=== PATIENT | female | born 1965 | race Caucasian/White ===

== ENCOUNTER 2016-07-24 22:23 | Emergency (ER) | payer OTHER ==
[2016-07-24] MEDS ORDERED: IPRATROPIUM/ALBUTEROL 3 ML NEB INH STA (23:07)
[2016-07-24] MEDS ORDERED: IPRATROPIUM/ALBUTEROL 3 ML NEB INH ONE (23:07)
[2016-07-24] MEDS ORDERED: DEXAMETHASONE 10 MG/ML VIAL PO STA (23:08)
[2016-07-24] MEDS ORDERED: DEXAMETHASONE 10 MG/ML VIAL ONE (23:21)
[2016-07-24] MEDS ORDERED: CHERRY SYRUP 10 ML UDC PO ONE (23:21)
[2016-07-24] MEDS ORDERED: PHENobarb/HYOSCY/ATROPINE/SCOP 5 ML SYRINGE PO STA (23:45)
[2016-07-24] MEDS ORDERED: MAG HYDROX/AL HYDROX/SIMETH 30 ML UDC PO STA (23:45)
[2016-07-24] MEDS ORDERED: LIDOCAINE VISCOUS 2% 15 ML UDC MM STA (23:45)
[2016-07-24] MEDS ORDERED: LIDOCAINE VISCOUS 2% 15 ML UDC MM ONE (23:56)
[2016-07-24] MEDS ORDERED: MAG HYDROX/AL HYDROX/SIMETH 30 ML UDC ONE (23:57)
[2016-07-24] MEDS ORDERED: PHENobarb/HYOSCY/ATROPINE/SCOP 5 ML SYRINGE PO ONE (23:57)
[2016-07-25] MEDS ORDERED: LEVALBUTEROL 1.25 MG INH STA (00:28)
[2016-07-25] MEDS ORDERED: LEVALBUTEROL 1.25 MG INH ONE (00:37)
== END 2016-07-25 01:30 | disposition home or self-care (01) ==
DX: J45.909 Unspecified asthma, uncomplicated (principal); I10 Essential (primary) hypertension; E78.00 Pure hypercholesterolemia, unspecified; K21.9 Gastro-esophageal reflux disease without esophagitis; F17.200 Nicotine dependence, unspecified, uncomplicated
CPT/HCPCS: 71020; 93005; 93010; 94640; 99284; A9270; J7620

== ENCOUNTER 2018-01-10 08:00 | Outpatient (CLI) | payer OTHER ==
[2018-01-10 19:45] LABS: BASOPHILS % (AUTO) 0.8 %; EOSINOPHILS % (AUTO) 1.7 %; HGB - HEMOGLOBIN 14.3 g/dL (12.0-16.0); LYMPHOCYTES % (AUTO) 23.4 %; MEAN CORPUSCULAR HEMOGLOBIN 28.9 pg (27.0-31.0); MEAN CORPUSCULAR HGB CONC 33.2 g/dL (32.0-36.0); MEAN CORPUSCULAR VOLUME 87.1 fL (81.0-99.0); MEAN PLATELET VOLUME 9.7 fL (7.9-10.8); MONOCYTES % (AUTO) 4.3 %; NEUTROPHILS % (AUTO) 69.8 %; PLT - PLATELET COUNT 368 10^3/uL (130-450); RED BLOOD COUNT 4.96 10^6/uL (4.20-5.40); RED CELL DISTRIBUTION WIDTH 13.9 % (12.0-15.0); WHITE BLOOD COUNT 9.5 x10^3/uL (4.8-10.8)
[2018-01-10 19:52] LABS: ABNORMAL LYMPHS % (MANUAL) 0 %
[2018-01-10 19:56] LABS: ALBUMIN 4.4 g/dL (3.2-5.5); ALBUMIN/GLOBULIN RATIO 1.2 (1.0-2.2); ALKALINE PHOSPHATASE 72 IU/L (42-121); ALT ALANINE AMINOTRANSFERASE 55 IU/L (10-60); AST ASPARTATE AMINOTRANSFERASE 61 IU/L (10-42); BILIRUBIN,TOTAL 1.1 mg/dL (0.2-1.0); BUN - BLOOD UREA NITROGEN 15 mg/dL (6-20); CARBON DIOXIDE - CO2 26 mmol/L (21-32); CHLORIDE 94 mmol/L (101-111); CHOL/HDL RATIO 6.5 (<4.4); CHOLESTEROL 194 mg/dL; CREATININE 0.8 mg/dL (0.4-1.0); GFR - MDRD 75 (>89); GLUCOSE 312 mg/dL (70-100); HDL CHOLESTEROL 30 mg/dL; LDL CHOLESTEROL,CALCULATED 109 mg/dL; LDL/HDL RATIO 3.6 (<4.4); SODIUM 131 mmol/L (135-145); TOTAL PROTEIN 8.2 g/dL (6.7-8.2); VLDL CHOLESTEROL 55 mg/dL
[2018-01-10 20:02] LABS: THYROID STIMULATING HORMONE 2.36 uIU/mL (0.34-5.60)
[2018-01-10 20:05] LABS: CRP - C-REACTIVE PROTEIN < 1.0 mg/dL (0-1.0)
[2018-01-10 20:31] LABS: BAND NEUTROPHILS % (MANUAL) 4 %; BASOPHILS # (MANUAL) 0.2 10^3/uL (0-0.1); BASOPHILS % (MANUAL) 2 %; EOSINOPHILS # (MANUAL) 0.1 10^3/uL (0-0.7); LYMPHOCYTES # (MANUAL) 2.1 10^3/uL (1.5-3.5); LYMPHOCYTES % (MANUAL) 20 %; MONOCYTES # (MANUAL) 0.5 10^3/uL (0.0-1.0); NEUTROPHILS # (MANUAL) 6.7 10^3/uL (1.5-6.6); NEUTROPHILS % (MANUAL) 66 %
[2018-01-10 20:32] LABS: DIFFERENTIAL COMMENT MANUAL DIFFERENTIAL; PLATELET ESTIMATE, MANUAL NORMAL (130-450,000) (NORMAL); PLATELET MORPHOLOGY NORMAL APPEARANCE (NORMAL); RBC MORPHOLOGY (MULTIPLE) NORMAL APPEARANCE (NORMAL)
[2018-01-10 20:35] LABS: HB2 TOTAL 15.6 g/dL; HEMOGLOBIN A1C 2.02 g/dL
== END 2018-01-10 08:01 | disposition home or self-care (01) ==
LOC: LAB.WCP 08:00
PROVIDERS: ATTEND Family Medicine
DX: G62.9 Polyneuropathy, unspecified (principal); I10 Essential (primary) hypertension
CPT/HCPCS: 36415; 80053; 80061; 82607; 83036; 83721; 84443; 85025; 86140

== ENCOUNTER 2018-07-02 08:00 | Outpatient (CLI) | payer OTHER ==
[2018-07-02 14:18] LABS: BASOPHILS # (AUTO) 0.1 10^3/uL (0.0-0.1); BASOPHILS % (AUTO) 0.9 %; EOSINOPHILS # (AUTO) 0.2 10^3/uL (0.0-0.7); EOSINOPHILS % (AUTO) 2.2 %; HGB - HEMOGLOBIN 13.4 g/dL (12.0-16.0); LYMPHOCYTES # (AUTO) 2.7 10^3/uL (1.5-3.5); LYMPHOCYTES % (AUTO) 26.5 %; MEAN CORPUSCULAR HEMOGLOBIN 28.7 pg (27.0-31.0); MEAN CORPUSCULAR HGB CONC 33.3 g/dL (32.0-36.0); MEAN CORPUSCULAR VOLUME 86.3 fL (81.0-99.0); MEAN PLATELET VOLUME 8.6 fL (7.9-10.8); MONOCYTES # (AUTO) 0.4 10^3/uL (0.0-1.0); MONOCYTES % (AUTO) 4.2 %; NEUTROPHILS # (AUTO) 6.8 10^3/uL (1.5-6.6); NEUTROPHILS % (AUTO) 66.2 %; PLT - PLATELET COUNT 359 10^3/uL (130-450); RED BLOOD COUNT 4.65 10^6/uL (4.20-5.40); RED CELL DISTRIBUTION WIDTH 14.4 % (12.0-15.0); WHITE BLOOD COUNT 10.3 x10^3/uL (4.8-10.8)
[2018-07-02 14:20] LABS: ALBUMIN 4.3 g/dL (3.2-5.5); ALBUMIN/GLOBULIN RATIO 1.2 (1.0-2.2); ALKALINE PHOSPHATASE 58 IU/L (42-121); ALT ALANINE AMINOTRANSFERASE 21 IU/L (10-60); AST ASPARTATE AMINOTRANSFERASE 18 IU/L (10-42); BILIRUBIN,TOTAL 0.7 mg/dL (0.2-1.0); BUN - BLOOD UREA NITROGEN 16 mg/dL (6-20); CALCIUM 9.5 mg/dL (8.5-10.3); CARBON DIOXIDE - CO2 26 mmol/L (21-32); CHLORIDE 98 mmol/L (101-111); CHOL/HDL RATIO 4.6 (<4.4); CHOLESTEROL 196 mg/dL; CREATININE 0.9 mg/dL (0.4-1.0); GFR - MDRD 65 (>89); GLUCOSE 161 mg/dL (70-100); HDL CHOLESTEROL 43 mg/dL; LDL CHOLESTEROL,CALCULATED 109 mg/dL; LDL/HDL RATIO 2.5 (<4.4); SODIUM 135 mmol/L (135-145); VLDL CHOLESTEROL 44 mg/dL
[2018-07-02 14:40] LABS: HB2 TOTAL 14.8 g/dL; HEMOGLOBIN A1C 0.95 g/dL
== END 2018-07-02 23:59 | disposition home or self-care (01) ==
LOC: LAB.WCP 08:00
PROVIDERS: ATTEND Family Medicine
DX: E11.65 Type 2 diabetes mellitus with hyperglycemia (principal)
CPT/HCPCS: 36415; 80053; 80061; 83036; 83721; 85025

== ENCOUNTER 2019-09-06 08:00 | Outpatient (CLI) | payer OTHER ==
[2019-09-06 13:27] LABS: BASOPHILS # (AUTO) 0.1 10^3/uL (0.0-0.1); BASOPHILS % (AUTO) 0.7 %; EOSINOPHILS # (AUTO) 0.2 10^3/uL (0.0-0.7); EOSINOPHILS % (AUTO) 2.2 %; HGB - HEMOGLOBIN 11.2 g/dL (12.0-16.0); LYMPHOCYTES % (AUTO) 27.6 %; MEAN CORPUSCULAR HEMOGLOBIN 25.9 pg (27.0-31.0); MEAN CORPUSCULAR HGB CONC 30.7 g/dL (32.0-36.0); MEAN CORPUSCULAR VOLUME 84.3 fL (81.0-99.0); MEAN PLATELET VOLUME 10.9 fL (7.9-10.8); MONOCYTES # (AUTO) 0.4 10^3/uL (0.0-1.0); MONOCYTES % (AUTO) 4.7 %; NEUTROPHILS # (AUTO) 4.7 10^3/uL (1.5-6.6); NEUTROPHILS % (AUTO) 64.3 %; PLT - PLATELET COUNT 341 10^3/uL (130-450); RED BLOOD COUNT 4.33 10^6/uL (4.20-5.40); RED CELL DISTRIBUTION WIDTH 14.4 % (12.0-15.0); WHITE BLOOD COUNT 7.4 x10^3/uL (4.8-10.8)
[2019-09-06 13:47] LABS: MICROALBUM/CREATININE RATIO,UR 42.2 ug/mg (<30.0); MICROALBUMIN,URINE 12.5 mg/dL (0-300.0)
[2019-09-06 14:15] LABS: ALBUMIN 3.9 g/dL (3.2-5.5); ALBUMIN/GLOBULIN RATIO 1.1 (1.0-2.2); ALKALINE PHOSPHATASE 52 IU/L (42-121); ALT ALANINE AMINOTRANSFERASE 32 IU/L (10-60); AST ASPARTATE AMINOTRANSFERASE 28 IU/L (10-42); BILIRUBIN,TOTAL 0.6 mg/dL (0.2-1.0); BUN - BLOOD UREA NITROGEN 18 mg/dL (6-20); CALCIUM 9.1 mg/dL (8.5-10.3); CARBON DIOXIDE - CO2 26 mmol/L (21-32); CHLORIDE 104 mmol/L (101-111); CHOLESTEROL 199 mg/dL; CREATININE 0.9 mg/dL (0.4-1.0); GLUCOSE 173 mg/dL (70-100); HDL CHOLESTEROL 33 mg/dL; LDL CHOLESTEROL,CALCULATED 120 mg/dL; LDL/HDL RATIO 3.6 (<4.4); SODIUM 140 mmol/L (135-145); TOTAL PROTEIN 7.4 g/dL (6.7-8.2); VLDL CHOLESTEROL 46 mg/dL
[2019-09-06 14:16] LABS: HEMOGLOBIN A1C 0.78 g/dL; HEMOGLOBIN A1C % 8.1 % (4.6-6.2)
== END 2019-09-06 23:59 | disposition home or self-care (01) ==
LOC: LAB.WCP 08:00
PROVIDERS: ATTEND Family Medicine
DX: E11.65 Type 2 diabetes mellitus with hyperglycemia (principal)
CPT/HCPCS: 36415; 80053; 80061; 82043; 82570; 83036; 83721; 84443; 85025

== ENCOUNTER 2020-12-28 11:26 | Outpatient (CLI) | payer OTHER ==
[2020-12-28 17:49] LABS: BASOPHILS # (AUTO) 0.1 10^3/uL (0.0-0.1); BASOPHILS % (AUTO) 0.9 %; EOSINOPHILS # (AUTO) 0.2 10^3/uL (0.0-0.7); EOSINOPHILS % (AUTO) 2.5 %; HCT - HEMATOCRIT 44.4 % (37.0-47.0); LYMPHOCYTES # (AUTO) 2.8 10^3/uL (1.5-3.5); LYMPHOCYTES % (AUTO) 30.9 %; MEAN CORPUSCULAR HEMOGLOBIN 29.2 pg (27.0-31.0); MEAN CORPUSCULAR HGB CONC 31.5 g/dL (32.0-36.0); MEAN CORPUSCULAR VOLUME 92.5 fL (81.0-99.0); MEAN PLATELET VOLUME 10.1 fL (7.9-10.8); MONOCYTES # (AUTO) 0.4 10^3/uL (0.0-1.0); MONOCYTES % (AUTO) 4.1 %; NEUTROPHILS # (AUTO) 5.6 10^3/uL (1.5-6.6); PLT - PLATELET COUNT 365 10^3/uL (130-450); RED CELL DISTRIBUTION WIDTH 13.3 % (12.0-15.0); WHITE BLOOD COUNT 9.1 x10^3/uL (4.8-10.8)
[2020-12-28 18:16] LABS: % IRON SATURATION 10 % (20-50); ALBUMIN 4.5 g/dL (3.2-5.5); ALBUMIN/GLOBULIN RATIO 1.2 (1.0-2.2); ALKALINE PHOSPHATASE 58 IU/L (42-121); ALT ALANINE AMINOTRANSFERASE 29 IU/L (10-60); AST ASPARTATE AMINOTRANSFERASE 18 IU/L (10-42); BILIRUBIN,TOTAL 0.4 mg/dL (0.2-1.0); BUN - BLOOD UREA NITROGEN 12 mg/dL (6-20); CALCIUM 9.4 mg/dL (8.5-10.3); CARBON DIOXIDE - CO2 30 mmol/L (21-32); CHLORIDE 97 mmol/L (101-111); CHOL/HDL RATIO 5.7 (<4.4); CHOLESTEROL 205 mg/dL; CREATININE 0.8 mg/dL (0.4-1.0); GFR - MDRD 74 (>89); GLUCOSE 144 mg/dL (70-100); HDL CHOLESTEROL 36 mg/dL; IRON 48 ug/dL (28-170); LDL CHOLESTEROL,CALCULATED 107 mg/dL; POTASSIUM 4.2 mmol/L (3.5-5.0); SODIUM 134 mmol/L (135-145); TOTAL IRON BINDING CAPACITY 470 ug/dL (250-450); TOTAL PROTEIN 8.2 g/dL (6.7-8.2); TRANSFERRIN 336 mg/dL (192-382); TRIGLYCERIDES 308 mg/dL; VLDL CHOLESTEROL 62 mg/dL
[2020-12-28 18:19] LABS: THYROID STIMULATING HORMONE 2.95 uIU/mL (0.34-5.60)
[2020-12-28 18:20] LABS: CREATININE,URINE 72.7 mg/dL; MICROALBUM/CREATININE RATIO,UR 6.9 ug/mg (<30.0); MICROALBUMIN,URINE 0.5 mg/dL (0-300.0)
[2020-12-28 20:46] LABS: ESTIMATED AVERAGE GLUCOSE 166 mg/dL (70-100); HEMOGLOBIN A1c% 7.4 % (4.27-6.07)
== END 2020-12-28 23:59 | disposition home or self-care (01) ==
LOC: LAB.WCP 11:26
PROVIDERS: ATTEND Family Medicine
DX: E11.8 Type 2 diabetes mellitus with unspecified complications (principal); D64.9 Anemia, unspecified
CPT/HCPCS: 36415; 80053; 80061; 82043; 82570; 82607; 82728; 83036; 83540; 83721; 84443; 84466; 85025

== ENCOUNTER 2021-03-30 08:58 | Outpatient (CLI) | payer OTHER ==
[2021-03-30 12:16] LABS: ALBUMIN 4.3 g/dL (3.2-5.5); ALBUMIN/GLOBULIN RATIO 1.2 (1.0-2.2); BILIRUBIN,TOTAL 0.8 mg/dL (0.2-1.0); CALCIUM 9.6 mg/dL (8.5-10.3); POTASSIUM 4.2 mmol/L (3.5-5.0); TOTAL PROTEIN 7.9 g/dL (6.7-8.2)
[2021-03-30 12:21] LABS: ESTIMATED AVERAGE GLUCOSE 160 mg/dL (70-100); HEMOGLOBIN A1c% 7.2 % (4.27-6.07)
== END 2021-03-30 23:59 | disposition home or self-care (01) ==
LOC: LAB.WCP 08:58
PROVIDERS: ATTEND Family Medicine
DX: E11.9 Type 2 diabetes mellitus without complications (principal)
CPT/HCPCS: 36415; 80053; 83036

== ENCOUNTER 2021-04-07 06:51 | Emergency (ER) | payer OTHER ==
[2021-04-07 07:02] VITALS: BP 169/96
[2021-04-07] MEDS ORDERED: DEXAMETHASONE 10 MG/ML VIAL PO STA (07:22)
[2021-04-07] MEDS ORDERED: CHERRY SYRUP 10 ML UDC PO ONE (07:22)
--- NOTE | 2021-04-07 07:24 | ED Physician Documentation ---
PD HPI URI - Stated complaint Stated Complaint: SOA/COUGH - Chief complaint Chief Complaint: Resp - History obtained from History obtained from: Patient - History of Present Illness Timing - onset: How many days ago (5) Timing duration: Days (5) Timing details: Gradual onset, Still present, Waxing and waning Associated symptoms: Nasal congestion, Productive cough, Dyspnea. No: Fever, Chills, Ear pain Contributing factors: Other (immunized without booster yet) Improves by: Rest, MDI/nebulizer Worsened by: Activity Similar symptoms before: Diagnosis (asthmatic bnronchitis) Recently seen: Not recently seen Review of Systems Constitutional: denies: Fever Eyes: denies: Decreased vision Ears: denies: Ear pain Nose: reports: Congestion Throat: denies: Dental pain / toothache, Sore throat Cardiac: denies: Chest pain / pressure, Palpitations Respiratory: reports: Dyspnea, Cough (slight yellow phlem), Wheezing GI: denies: Abdominal Pain, Nausea, Vomiting : denies: Dysuria, Frequency Skin: denies: Rash, Lesions Musculoskeletal: denies: Neck pain, Back pain, Extremity pain Neurologic: denies: Generalized weakness, Focal weakness, Numbness PD PAST MEDICAL HISTORY - Past Medical History Past Medical History: Yes Cardiovascular: Hypertension, High cholesterol Respiratory: Asthma, Other Neuro: None Endocrine/Autoimmune: None GI: GERD 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 : None HEENT: None Psych: Depression Musculoskeletal: None Derm: None - Past Surgical History Past Surgical History: Yes - Present Medications Home Medications: Ambulatory Orders Medication Instructions Recorded Confirmed Amlodipine Bes/Olmesartan Med 1 each PO DAILY 08/10/15 07/24/16 [Sonia 10-20 mg Tablet] Cetirizine [ZyrTEC] 10 mg PO DAILY 08/10/15 07/24/16 Montelukast [Singulair] 10 mg PO QPM 08/10/15 07/24/16 Omeprazole [PriLOSEC] 20 mg PO DAILY 08/10/15 07/24/16 Pravastatin [Pravachol] 20 mg PO DAILY 08/10/15 07/24/16 Zolpidem [Ambien] 10 mg PO HS 08/10/15 07/24/16 buPROPion [Wellbutrin Sr] 150 mg PO BID 08/10/15 07/24/16 hydroCHLOROthiazide 25 mg PO DAILY 08/10/15 07/24/16 [Hydrochlorothiazide] predniSONE [Prednisone] 20 mg PO DAILY #10 tablet 07/25/16 Azithromycin [Zithromax] 250 mg PO DAILY #6 tablet 04/07/21 Levalbuterol [Xopenex] 1 puffs INH Q4-6H #15 gm 04/07/21 predniSONE [Deltasone] 10 mg PO ONCE #26 tablet 04/07/21 - Allergies Allergies/Adverse Reactions: Allergies Allergy/AdvReac Type Severity Reaction Status Date / Time nitrofurantoin AdvReac Nausea Verified 04/07/21 07:02 [From Macrobid] nitrofurantoin AdvReac Nausea Verified 04/07/21 07:02 macrocrystalline * [From Macrobid] Sulfa (Sulfonamide AdvReac Rash Verified 04/07/21 07:02 Antibiotics) - Social History Does the pt smoke?: No Smoking Status: Never smoker Does the pt drink ETOH?: No Does the pt have substance abuse?: No - Immunizations Immunizations are current?: Yes - POLST Patient has POLST: No PD ED PE NORMAL - Vitals Vital signs reviewed: Yes (hypertension ) - General General: Alert and oriented X 3, No acute distress, Well developed/nourished - HEENT HEENT: Atraumatic, PERRL, EOMI - Neck Neck: Supple, no meningeal sign, No bony TTP - Cardiac Cardiac: RRR, No murmur - Respiratory Respiratory: No respiratory distress, Other (course breath sounds bilat ) - Abdomen Abdomen: Soft, Non tender - Back Back: No CVA TTP, No spinal TTP - Derm Derm: Normal color, Warm and dry, No rash - Extremities Extremities: No deformity, No edema - Neuro Neuro: Alert and oriented X 3, 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, No motor deficit, No sensory deficit, Normal speech Eye Opening: Spontaneous Motor: Obeys Commands Verbal: Oriented GCS Score: 15 - Psych Psych: Normal mood, Normal affect Results - Vitals Vitals: Vital Signs - 24 hr 04/07/21 07:00 Temperature 36.4 C L Heart Rate 89 Respiratory 17 Rate Blood Pressure 169/96 H O2 Saturation 96 Oxygen O2 Source Room air - Rads (name of study) chest Radiology: Prelim report reviewed (Impression: No acute cardiopulmonary pathology.), EMP read indepedently, See rad report PD MEDICAL DECISION MAKING - ED course Complexity details: reviewed results, re-evaluated patient, considered differential, d/w patient ED course: 56-year-old female with mild intermittent asthmatic bronchitis has developed asthmatic bronchitis again she is coughing she developed some phlegm in her cough. We will place her on a course of prednisone and azithromycin. Departure - Departure Disposition: 01 Home, Self Care Clinical Impression: Asthmatic bronchitis with acute exacerbation Qualifiers: Asthma severity: mild Asthma persistence: intermittent Qualified Code(s): J45.21 - Mild intermittent asthma with (acute) exacerbation Condition: Stable Instructions: ED Bronchitis Asthmatic Follow-Up: Kai Estrada DO [Primary Care Provider] - Prescriptions: predniSONE [Deltasone] 10 mg PO ONCE #26 tablet Levalbuterol [Xopenex] 1 puffs INH Q4-6H #15 gm Azithromycin [Zithromax] 250 mg PO DAILY #6 tablet Comments: Claudine, today it looks like you have asthmatic bronchitis and you will need a short course of prednisone as well as antibiotic as you are coughing up yellow phlegm. The expectation is day by day improvement. A Covid test is pending. Quarantine until your test is negative. Scripts for prednisone, zithromax and xopenex have been e-scribed to [facility] in [place]. Forms: Activity restrictions Discharge Date/Time: 04/07/21 08:35
--- NOTE | 2021-04-07 08:21 | XRAY Report ---
PROCEDURE: Chest 1 View X-Ray INDICATIONS: chest pain TECHNIQUE: One view of the chest was acquired. COMPARISON: 07/24/2016 FINDINGS: Surgical changes and devices: None. Lungs and pleura: No pleural effusions or pneumothorax. Lungs are clear. Mediastinum: Mediastinal contours appear normal. Heart size is normal. Bones and chest wall: No suspicious bony lesions. Overlying soft tissues appear unremarkable. IMPRESSION: No acute cardiopulmonary pathology. Reviewed by: Tyrell Matos MD on 04/07/2021 8:20 AM [facility] Approved by: Tyrell Matos MD on 04/07/2021 8:20 AM [facility] Station ID: [id number]
== END 2021-04-07 08:35 | disposition home or self-care (01) ==
LOC: ED 06:51
DX: J45.21 Mild intermittent asthma with (acute) exacerbation (principal); I10 Essential (primary) hypertension; Z20.822 Contact with and (suspected) exposure to COVID-19
CPT/HCPCS: 71045; 87635; 99283; 99284; A9270

== ENCOUNTER 2021-07-08 08:00 | Outpatient (CLI) | payer OTHER | END 2021-07-08 23:59 | disposition home or self-care (01) | LOC: LAB.N 08:00 | PROVIDERS: ATTEND Nurse Practitioner Family | DX: U07.1 COVID-19 (principal) ==

== ENCOUNTER 2022-03-09 09:09 | Outpatient (CLI) | payer OTHER ==
[2022-03-09 12:15] LABS: BASOPHILS # (AUTO) 0.1 10^3/uL (0.0-0.1); BASOPHILS % (AUTO) 1.2 %; EOSINOPHILS # (AUTO) 0.3 10^3/uL (0.0-0.7); EOSINOPHILS % (AUTO) 3.7 %; HCT - HEMATOCRIT 43.3 % (37.0-47.0); HGB - HEMOGLOBIN 14.1 g/dL (12.0-16.0); LYMPHOCYTES # (AUTO) 2.8 10^3/uL (1.5-3.5); LYMPHOCYTES % (AUTO) 32.9 %; MEAN CORPUSCULAR HEMOGLOBIN 29.6 pg (27.0-31.0); MEAN CORPUSCULAR HGB CONC 32.6 g/dL (32.0-36.0); MEAN CORPUSCULAR VOLUME 90.8 fL (81.0-99.0); MEAN PLATELET VOLUME 10.2 fL (7.9-10.8); MONOCYTES # (AUTO) 0.4 10^3/uL (0.0-1.0); MONOCYTES % (AUTO) 5.3 %; NEUTROPHILS # (AUTO) 4.7 10^3/uL (1.5-6.6); NEUTROPHILS % (AUTO) 56.7 %; PLT - PLATELET COUNT 346 10^3/uL (130-450); RED BLOOD COUNT 4.77 10^6/uL (4.20-5.40); RED CELL DISTRIBUTION WIDTH 13.9 % (12.0-15.0); WHITE BLOOD COUNT 8.4 x10^3/uL (4.8-10.8)
[2022-03-09 12:58] LABS: ESTIMATED AVERAGE GLUCOSE 151 mg/dL (70-100); HEMOGLOBIN A1c% 6.9 % (4.27-6.07)
[2022-03-09 13:16] LABS: % IRON SATURATION 12 % (20-50); ALBUMIN 4.5 g/dL (3.2-5.5); ALBUMIN/GLOBULIN RATIO 1.2 (1.0-2.2); ALKALINE PHOSPHATASE 56 IU/L (42-121); ALT ALANINE AMINOTRANSFERASE 25 IU/L (10-60); AST ASPARTATE AMINOTRANSFERASE 18 IU/L (10-42); BILIRUBIN,TOTAL 0.3 mg/dL (0.2-1.0); BUN - BLOOD UREA NITROGEN 17 mg/dL (6-20); CALCIUM 9.6 mg/dL (8.5-10.3); CARBON DIOXIDE - CO2 28 mmol/L (21-32); CHLORIDE 99 mmol/L (101-111); CHOL/HDL RATIO 6.5 (<4.4); CHOLESTEROL 260 mg/dL; CREATININE 0.9 mg/dL (0.4-1.0); GFR - MDRD 65 (>89); GLUCOSE 149 mg/dL (70-100); HDL CHOLESTEROL 40 mg/dL; IRON 55 ug/dL (28-170); LDL CHOLESTEROL,CALCULATED 156 mg/dL; LDL/HDL RATIO 3.9 (<4.4); SODIUM 138 mmol/L (135-145); TOTAL IRON BINDING CAPACITY 442 ug/dL (250-450); TOTAL PROTEIN 8.3 g/dL (6.7-8.2); TRANSFERRIN 316 mg/dL (192-382); TRIGLYCERIDES 320 mg/dL; VLDL CHOLESTEROL 64 mg/dL
== END 2022-03-09 09:10 | disposition home or self-care (01) ==
LOC: LAB.N 09:09
PROVIDERS: ATTEND Physician Assistant
DX: D64.9 Anemia, unspecified (principal); E11.9 Type 2 diabetes mellitus without complications
CPT/HCPCS: 36415; 80053; 80061; 82728; 83036; 83540; 83721; 84466; 85025

== ENCOUNTER 2022-03-29 18:30 | Emergency (ER) | payer OTHER ==
[2022-03-29] MEDS ORDERED: IPRATROPIUM/ALBUTEROL 3 ML NEB INH STA (18:46)
[2022-03-29] MEDS ORDERED: predniSONE 20 MG TABLET PO STA (18:46)
--- NOTE | 2022-03-29 18:48 | ED Physician Documentation ---
PD HPI DYSPNEA - Stated complaint Stated Complaint: SOA - Chief complaint Chief Complaint: Resp - History obtained from History obtained from: Patient - Additional information Additional information: 57-year-old woman with history of hypertension and asthma presents for an apparent asthma exacerbation. On a normal day she takes Advair and montelukast. Current exacerbation started yesterday, trigger was unclear. She does have a cough but it is nonproductive. No fever or other URI symptoms. She has been using a nebulizer at home with albuterol (noting that she usually gets a prescription for DuoNeb but for some reason only has albuterol now.) She denies pedal edema, calf pain, chest pain. She has been admitted for asthma before but never to ICU. 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 : None HEENT: None Psych: Depression Musculoskeletal: None Derm: None - Past Surgical History Past Surgical History: Yes - Present Medications Home Medications: Ambulatory Orders Medication Instructions Recorded Confirmed Cetirizine [ZyrTEC] 10 mg PO DAILY 08/10/15 03/29/22 Montelukast [Singulair] 10 mg PO QPM 08/10/15 03/29/22 Omeprazole [PriLOSEC] 20 mg PO DAILY 08/10/15 03/29/22 Pravastatin [Pravachol] 20 mg PO DAILY 08/10/15 03/29/22 Zolpidem [Ambien] 10 mg PO HS 08/10/15 03/29/22 buPROPion [Wellbutrin Sr] 150 mg PO BID 08/10/15 03/29/22 hydroCHLOROthiazide 25 mg PO DAILY 08/10/15 03/29/22 [Hydrochlorothiazide] Levalbuterol [Xopenex] 1 puffs INH Q4-6H #15 gm 04/07/21 03/29/22 Benzonatate [Tessalon] 200 mg PO TID PRN #20 cap 03/29/22 Gabapentin [Neurontin] 300 mg PO HS 03/29/22 03/29/22 Glipizide [Glipizide ER] 5 mg PO DAILY 03/29/22 03/29/22 Ipratropium/Albuterol [Duoneb] 3 ml INH Q6H PRN #1 ea 03/29/22 Losartan [Cozaar] 100 mg PO DAILY 03/29/22 03/29/22 amLODIPine [Norvasc] 10 mg PO DAILY 03/29/22 03/29/22 predniSONE [Deltasone] 20 mg PO [id number] #21 tab 03/29/22 - Allergies Allergies/Adverse Reactions: Allergies Allergy/AdvReac Type Severity Reaction Status Date / Time nitrofurantoin AdvReac Nausea Verified 03/29/22 18:36 [From Macrobid] nitrofurantoin AdvReac Nausea Verified 03/29/22 18:36 macrocrystalline * [From Macrobid] Sulfa (Sulfonamide AdvReac Rash Verified 03/29/22 18:36 Antibiotics) - Social History Does the pt smoke?: No Smoking Status: Never smoker Does the pt drink ETOH?: No Does the pt have substance abuse?: No - Immunizations Immunizations are current?: Yes - POLST Patient has POLST: No PD ED PE NORMAL - Vitals Vital signs reviewed: Yes - General General: Alert and oriented X 3, Other (Occasional cough, minimally labored breathing but speaking in full sentences.) - HEENT HEENT: PERRL, EOMI - Neck Neck: Supple, no meningeal sign, No bony TTP - Cardiac Cardiac: RRR, No murmur - Respiratory Respiratory: Other (Expiratory wheezes throughout, but generally good air movement, no focal findings) - Abdomen Abdomen: Non tender - Derm Derm: Normal color, Warm and dry - Extremities Extremities: No edema, No calf tenderness / cord - Neuro Neuro: Alert and oriented X 3, Normal speech Results - Vitals Vitals: Vital Signs - 24 hr 03/29/22 03/29/22 03/29/22 18:36 19:00 20:03 Temperature 36.5 C 36.7 C Heart Rate 96 78 91 Respiratory 22 19 16 Rate Blood Pressure 129/83 H 140/80 H O2 Saturation 99 97 Oxygen O2 Source Room air - Rads (name of study) 1v cxr Radiology: Final report received, EMP read indepedently (NAD) PD MEDICAL DECISION MAKING - ED course ED course: On reexamination after DuoNeb her my lungs were much clearer. And feeling comfortable with discharge. Departure - Departure Disposition: 01 Home, Self Care Clinical Impression: Asthma exacerbation Condition: Good Record reviewed to determine appropriate education?: Yes Instructions: Asthma Dc Prescriptions: predniSONE [Deltasone] 20 mg PO [id number] #21 tab Ipratropium/Albuterol [Duoneb] 3 ml INH Q6H PRN #1 ea PRN Reason: Wheezing Benzonatate [Tessalon] 200 mg PO TID PRN #20 cap PRN Reason: Cough Comments: Call your doctor to arrange a follow-up appointment, make the next available appointment. In the interim, return anytime if worse or if new symptoms develop. Discharge Date/Time: 03/29/22 20:07
[2022-03-29] MEDS ORDERED: BENZONATATE 100 MG CAPSULE PO STA (19:55)
[2022-03-29 20:05] VITALS: BP 140/80
--- NOTE | 2022-03-29 20:23 | XRAY Report ---
PROCEDURE: Chest 1 View X-Ray INDICATIONS: cough TECHNIQUE: One view of the chest was acquired. COMPARISON: None. FINDINGS: Surgical changes and devices: None. Lungs and pleura: No pleural effusions or pneumothorax. Lungs are clear. Mediastinum: Mediastinal contours appear normal. Heart size is normal. Bones and chest wall: No suspicious bony lesions. Overlying soft tissues appear unremarkable. IMPRESSION: No acute cardiopulmonary disease. Reviewed by: Kely Agarwal MD on 03/29/2022 8:21 PM PST Approved by: Kely Agarwal MD on 03/29/2022 8:21 PM PST Station ID: [id number]
== END 2022-03-29 20:07 | disposition home or self-care (01) ==
LOC: ED 18:30
DX: J45.901 Unspecified asthma with (acute) exacerbation (principal)
CPT/HCPCS: 71045; 94640; 99283; A9270; J7512

== ENCOUNTER 2022-06-06 10:15 | Outpatient (CLI) | payer OTHER ==
--- NOTE | 2022-06-21 10:02 | Mammography Report ---
BILATERAL DIGITAL SCREENING MAMMOGRAM 3D/2D: 06/06/2022 CLINICAL: Family history of breast cancer. Routine screening. Comparison is made to exams dated: 02/03/2014 mammogram - [facility], 04/11/2012 mammogr am, and 01/29/2008 mammogram - [facility]. There are scattered areas of fibroglandular density in both breasts (category b / 25%-50% glandular t issue). No significant masses, calcifications, or other findings are seen in either breast. There has been no significant interval change. IMPRESSION: NEGATIVE There is no mammographic evidence of malignancy. A 1 year screening mammogram is recommended. Based on the Tyrer Cuzick model (a risk assessment model) the patients lifetime risk is 10.5% and he r 10 year risk is 3.7%. According to the ACR, ACS, and NCCN guidelines, an annual breast MRI exam ghulam ng with mammogram is recommended if the patients lifetime risk is 20% or greater. This exam was interpreted at Station ID: [id number]. NOTE: For mammograms, a report in lay terms will be sent to the patient. Approximately 15% of breast malignancies will not be visualized mammographically. In the management of a palpable breast mass, a negative mammogram must not discourage biopsy of a clinically suspicious lesion. Electronically Signed By: Declan solis/forrest:06/20/2022 10:48:34 letter sent: No_Letter ACR BI-RADS Category 1: Negative 3341F PARENCHYMAL PATTERN: (A) - The breast(s) demonstrate(s) scattered fibroglandular densities. BI-RADS CATEGORY: (1) - 1 RECOMMENDATION: (ANNUAL) - Recommend routine annual screening mammography. [id number] 1 year screening LATERALITY: (B)
== END 2022-06-06 10:16 | disposition home or self-care (01) ==
LOC: DI.N 10:15
DX: Z12.31 Encounter for screening mammogram for malignant neoplasm of breast (principal); Z80.3 Family history of malignant neoplasm of breast

== ENCOUNTER 2022-06-20 15:40 | Outpatient (CLI) | payer OTHER ==
--- NOTE | 2022-06-21 16:59 | Ultrasound Report ---
PROCEDURE: Duplex Lwr Ext Arterial Bilat INDICATIONS: EDEMA TECHNIQUE: Color and pulse Doppler interrogation was performed of both lower extremity arterial systems, with im age documentation. COMPARISON: None FINDINGS: Right lower extremity: Common femoral artery: 74 cm/sec, with triphasic flow. Deep femoral artery: 53 cm/sec, with triphasic flow. Proximal superficial femoral artery: 88 cm/sec, with triphasic flow. Mid superficial femoral artery: 94 cm/sec, with triphasic flow. Distal superficial femoral artery: 57 cm/sec, with triphasic flow. Popliteal artery: 64 cm/sec, with triphasic flow. Posterior tibial artery: 75 cm/sec, with triphasic flow. Anterior tibial artery/dorsalis pedis: 82 cm/sec, with triphasic flow. Maki-scale imaging description: Minimal diffuse plaque Left lower extremity: Common femoral artery: 72 cm/sec, with triphasic flow. Deep femoral artery: 79 cm/sec, with triphasic flow. Proximal superficial femoral artery: 54 cm/sec, with triphasic flow. Mid superficial femoral artery: 83 cm/sec, with triphasic flow. Distal superficial femoral artery: 54 cm/sec, with triphasic flow. Popliteal artery: 53 cm/sec, with triphasic flow. Posterior tibial artery: 47 cm/sec, with triphasic flow. Anterior tibial artery/dorsalis pedis: 91 cm/sec, with triphasic flow. Maki-scale imaging description: Minimal diffuse plaque IMPRESSION: No evidence of arterial insufficiency to the bilateral lower extremities. Reviewed by: Naomi Sanchez MD on 06/21/2022 4:58 PM PST Approved by: Naomi Sanchez MD on 06/21/2022 4:58 PM PST Station ID: [id number]
== END 2022-06-20 15:41 | disposition home or self-care (01) ==
LOC: DI 15:40
PROVIDERS: ATTEND Physician Assistant
DX: R60.9 Edema, unspecified (principal)
CPT/HCPCS: 93925

== ENCOUNTER 2022-08-06 10:05 | Emergency (ER) | payer OTHER ==
[2022-08-06] MEDS ORDERED: IPRATROPIUM/ALBUTEROL 3 ML NEB INH STA (10:29)
[2022-08-06] MEDS ORDERED: predniSONE 20 MG TABLET PO STA (10:29)
--- NOTE | 2022-08-06 10:36 | ED Physician Documentation ---
PD HPI DYSPNEA - Stated complaint Stated Complaint: ASTHMA - Chief complaint Chief Complaint: Resp - History obtained from History obtained from: Patient - Additional information Additional information: Patient is a 57-year-old female presenting for evaluation of feeling short of breath for the past 1 week. She reports having a history of asthma and states that this feels similar to her asthma and does not feel different in any way. She has been using her Xopenex inhaler without any significant improvement. She is out of her DuoNeb. She has not recently been on steroids. She reports a nonproductive cough. She has not taken a recent COVID test. She is unsure of any known trigger for this flare. She denies chest pain, fevers, abdominal pain, vomiting. She is a social smoker. 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 HEENT: None Psych: Depression Musculoskeletal: None Derm: None - Past Surgical History Past Surgical History: Yes - Present Medications Home Medications: Ambulatory Orders Medication Instructions Recorded Confirmed Cetirizine [ZyrTEC] 10 mg PO DAILY 08/10/15 03/29/22 Montelukast [Singulair] 10 mg PO QPM 08/10/15 03/29/22 Omeprazole [PriLOSEC] 20 mg PO DAILY 08/10/15 03/29/22 Pravastatin [Pravachol] 20 mg PO DAILY 08/10/15 03/29/22 Zolpidem [Ambien] 10 mg PO HS 08/10/15 03/29/22 buPROPion [Wellbutrin Sr] 150 mg PO BID 08/10/15 03/29/22 hydroCHLOROthiazide 25 mg PO DAILY 08/10/15 03/29/22 [Hydrochlorothiazide] Levalbuterol [Xopenex] 1 puffs INH Q4-6H #15 gm 04/07/21 03/29/22 Benzonatate [Tessalon] 200 mg PO TID PRN #20 cap 03/29/22 Gabapentin [Neurontin] 300 mg PO HS 03/29/22 03/29/22 Glipizide [Glipizide ER] 5 mg PO DAILY 03/29/22 03/29/22 Ipratropium/Albuterol [Duoneb] 3 ml INH Q6H PRN #1 ea 03/29/22 Losartan [Cozaar] 100 mg PO DAILY 03/29/22 03/29/22 amLODIPine [Norvasc] 10 mg PO DAILY 03/29/22 03/29/22 predniSONE [Deltasone] 20 mg PO [id number] #21 tab 03/29/22 Ipratropium/Albuterol [Duoneb] 3 ml INH Q6H PRN #30 ea 08/06/22 predniSONE [Deltasone] 60 mg PO DAILY 4 Days #12 tablet 08/06/22 - Allergies Allergies/Adverse Reactions: Allergies Allergy/AdvReac Type Severity Reaction Status Date / Time nitrofurantoin AdvReac Nausea Verified 08/06/22 10:15 [From Macrobid] nitrofurantoin AdvReac Nausea Verified 08/06/22 10:15 macrocrystalline * [From Macrobid] Sulfa (Sulfonamide AdvReac Rash Verified 08/06/22 10:15 Antibiotics) - Social History Does the pt smoke?: No Smoking Status: Never smoker Does the pt drink ETOH?: No Does the pt have substance abuse?: No - Immunizations Immunizations are current?: Yes - POLST Patient has POLST: No PD ED PE NORMAL - General General: Alert and oriented X 3, No acute distress, Well developed/nourished - HEENT HEENT: Atraumatic - Neck Neck: Supple, no meningeal sign - Cardiac Cardiac: RRR, No murmur - Respiratory Respiratory: No respiratory distress, Other (Diffuse expiratory wheezing) - Abdomen Abdomen: Soft, Non tender - Extremities Extremities: No edema, No calf tenderness / cord - Neuro Neuro: Normal speech Results - Vitals Vitals: Vital Signs - 24 hr 08/06/22 08/06/22 08/06/22 10:12 10:49 11:32 Temperature 36.8 C Heart Rate 90 81 78 Respiratory 18 17 20 Rate Blood Pressure 151/91 H 144/101 H O2 Saturation 94 96 Oxygen O2 Source Room air - Labs Labs: Laboratory Tests 08/06/22 10:35 SARS-CoV-2 (PCR) NOT DETECTED PD Medical Decision Making - ED course Complexity details: reviewed results, re-evaluated patient, d/w patient ED course: Patient is a 57-year-old female presenting for evaluation of shortness of b reath. She has a history of asthma. Her vital signs appear stable. She is not labored with her breathing. She is wheezing however. She has not had relief with home treatments. She was given a DuoNeb treatment here with significant improvement. She was also started on prednisone. Her chest x-ray which I reviewed is negative for consolidation or effusion. She has no chest pain to suggest cardiac etiology. Her COVID swab is negative. Patient is counseled on continued treatment plan with steroids and inhaler use her neb treatments at home.She is counseled on concerning symptoms to return for. Departure - Departure Disposition: Home, Self Care Clinical Impression: Asthma exacerbation Condition: Stable Instructions: ED Bronchitis Asthmatic Prescriptions: predniSONE [Deltasone] 60 mg PO DAILY 4 Days #12 tablet Ipratropium/Albuterol [Duoneb] 3 ml INH Q6H PRN #30 ea PRN Reason: Wheezing Comments: We have started you on prednisone for your asthma exacerbation. I have also sent a refill of DuoNeb treatments to [facility] in [place]. I do not see signs of pneumonia on your chest x-ray. If the radiologist notices any discrepancies I will call you later today. Your COVID test is still pending. We will notify you if it is positive. Please return to the emergency department if you develop any worsening symptoms such as chest pain or increased shortness of breath or have any new concerns. Discharge Date/Time: 08/06/22 11:32
--- NOTE | 2022-08-06 11:23 | XRAY Report ---
PROCEDURE: Chest 1 View X-Ray INDICATIONS: SOA TECHNIQUE: One view of the chest was acquired. COMPARISON: None. FINDINGS: Surgical changes and devices: None. Lungs and pleura: No pleural effusions or pneumothorax. Lungs are clear. Mediastinum: Mediastinal contours appear normal. Heart size is normal. Bones and chest wall: No suspicious bony lesions. Overlying soft tissues appear unremarkable. IMPRESSION: No acute cardiopulmonary findings Reviewed by: Sachin Sands MD on 08/06/2022 10:21 AM [facility] Approved by: Sachin Sands MD on 08/06/2022 10:21 AM [facility] Station ID: [id number]
[2022-08-06 11:33] VITALS: BP 144/101
== END 2022-08-06 11:32 | disposition home or self-care (01) ==
LOC: ED 10:05
DX: J45.901 Unspecified asthma with (acute) exacerbation (principal); F17.200 Nicotine dependence, unspecified, uncomplicated; Z20.822 Contact with and (suspected) exposure to COVID-19
CPT/HCPCS: 71045; 87635; 94640; 99284; J7512

== ENCOUNTER 2022-08-22 07:19 | Outpatient (CLI) | payer OTHER ==
[2022-08-22 13:28] LABS: ALBUMIN 3.9 g/dL (3.2-5.5); ALBUMIN/GLOBULIN RATIO 1.1 (1.0-2.2); ALKALINE PHOSPHATASE 53 IU/L (42-121); ALT ALANINE AMINOTRANSFERASE 21 IU/L (10-60); AST ASPARTATE AMINOTRANSFERASE 14 IU/L (10-42); BILIRUBIN,TOTAL 0.5 mg/dL (0.2-1.0); BUN - BLOOD UREA NITROGEN 18 mg/dL (6-20); CALCIUM 9.2 mg/dL (8.5-10.3); CARBON DIOXIDE - CO2 25 mmol/L (21-32); CHLORIDE 103 mmol/L (101-111); CHOL/HDL RATIO 4.9 (<4.4); CHOLESTEROL 228 mg/dL; CREATININE 0.9 mg/dL (0.4-1.0); GFR - MDRD 65 (>89); GLUCOSE 198 mg/dL (70-100); HDL CHOLESTEROL 47 mg/dL; LDL CHOLESTEROL,CALCULATED 115 mg/dL; LDL/HDL RATIO 2.4 (<4.4); POTASSIUM 4.6 mmol/L (3.5-5.0); SODIUM 138 mmol/L (135-145); TOTAL PROTEIN 7.6 g/dL (6.7-8.2); TRIGLYCERIDES 329 mg/dL; VLDL CHOLESTEROL 66 mg/dL
[2022-08-22 14:11] LABS: ESTIMATED AVERAGE GLUCOSE 160 mg/dL (70-100); HEMOGLOBIN A1c% 7.2 % (4.27-6.07)
== END 2022-08-22 07:20 | disposition home or self-care (01) ==
LOC: LAB.N 07:19
PROVIDERS: ATTEND Physician Assistant
DX: E11.9 Type 2 diabetes mellitus without complications (principal); E78.1 Pure hyperglyceridemia
CPT/HCPCS: 36415; 80053; 80061; 83036; 83721

== ENCOUNTER 2022-11-18 07:05 | Outpatient (CLI) | payer OTHER ==
[2022-11-18 12:46] LABS: BASOPHILS # (AUTO) 0.1 10^3/uL (0.0-0.1); EOSINOPHILS # (AUTO) 0.3 10^3/uL (0.0-0.7); EOSINOPHILS % (AUTO) 2.8 %; HCT - HEMATOCRIT 39.9 % (37.0-47.0); HGB - HEMOGLOBIN 12.6 g/dL (12.0-16.0); LYMPHOCYTES # (AUTO) 2.7 10^3/uL (1.5-3.5); LYMPHOCYTES % (AUTO) 29.4 %; MEAN CORPUSCULAR HEMOGLOBIN 29.2 pg (27.0-31.0); MEAN CORPUSCULAR HGB CONC 31.6 g/dL (32.0-36.0); MEAN CORPUSCULAR VOLUME 92.6 fL (81.0-99.0); MEAN PLATELET VOLUME 10.2 fL (7.9-10.8); MONOCYTES # (AUTO) 0.5 10^3/uL (0.0-1.0); MONOCYTES % (AUTO) 5.4 %; NEUTROPHILS # (AUTO) 5.6 10^3/uL (1.5-6.6); NEUTROPHILS % (AUTO) 61.1 %; PLT - PLATELET COUNT 342 10^3/uL (130-450); RED BLOOD COUNT 4.31 10^6/uL (4.20-5.40); RED CELL DISTRIBUTION WIDTH 13.3 % (12.0-15.0); WHITE BLOOD COUNT 9.2 x10^3/uL (4.8-10.8)
[2022-11-18 13:18] LABS: BUN - BLOOD UREA NITROGEN 22 mg/dL (6-20); CALCIUM 9.7 mg/dL (8.5-10.3); CARBON DIOXIDE - CO2 28 mmol/L (21-32); CHLORIDE 100 mmol/L (101-111); CHOL/HDL RATIO 6.3 (<4.4); CHOLESTEROL 209 mg/dL; CREATININE 1.1 mg/dL (0.6-1.3); GFR - MDRD 51 (>89); GLUCOSE 131 mg/dL (74-104); HDL CHOLESTEROL 33 mg/dL; LDL CHOLESTEROL,CALCULATED 110 mg/dL; LDL/HDL RATIO 3.3 (<4.4); POTASSIUM 4.2 mmol/L (3.5-4.5); SODIUM 134 mmol/L (135-145); TRIGLYCERIDES 330 mg/dL (48-352); VLDL CHOLESTEROL 66 mg/dL
[2022-11-18 13:28] LABS: CREATININE,URINE 96.6 mg/dL; MICROALBUM/CREATININE RATIO,UR 10.4 ug/mg (<30.0)
[2022-11-18 13:37] LABS: ESTIMATED AVERAGE GLUCOSE 143 mg/dL (70-100); HEMOGLOBIN A1c% 6.6 % (4.27-6.07)
== END 2022-11-18 07:06 | disposition home or self-care (01) ==
LOC: LAB.N 07:05
PROVIDERS: ATTEND Physician Assistant
DX: E11.9 Type 2 diabetes mellitus without complications (principal); E78.1 Pure hyperglyceridemia; E78.5 Hyperlipidemia, unspecified
CPT/HCPCS: 36415; 80048; 80061; 82043; 82570; 83036; 83721; 85025

== ENCOUNTER 2023-08-03 12:51 | Emergency (ER) | payer OTHER ==
[2023-08-03 13:23] VITALS: O2SAT 99
--- NOTE | 2023-08-03 13:49 | ED Physician Documentation ---
PD HPI DYSPNEA - Stated complaint Stated Complaint: SOA,COUGHING - Chief complaint Chief Complaint: Resp - Additional information Additional information: 58-year-old female with a history of asthma presents stating she feels like she is having an asthma exacerbation. She has had increasing shortness of breath over the course of the last week. She sat that it would improve with increasing neb treatments at home and taking her regular medication but continues to be bothersome. It feels like prior asthma exacerbations. She has not had a fever or chills, no URI type symptoms, no chest pain. She is taking albuterol, DuoNebs, and Singulair at home. She has been seen several times in the past for asthma exacerbations Review of Systems Constitutional: reports: Reviewed and negative Eyes: reports: Reviewed and negative Ears: reports: Reviewed and negative Nose: reports: Reviewed and negative Throat: reports: Reviewed and negative Cardiac: reports: Reviewed and negative Respiratory: reports: Dyspnea, Cough, Wheezing GI: reports: Reviewed and negative : reports: Reviewed and negative Skin: reports: Reviewed and negative Musculoskeletal: reports: Reviewed and negative Neurologic: reports: Reviewed and negative Psychiatric: reports: Reviewed and negative Endocrine: reports: Reviewed and negative PD PAST MEDICAL HISTORY - Past Medical History Past Medical History: Yes Cardiovascular: Hypertension, High cholesterol Respiratory: Asthma, Other Neuro: None Endocrine/Autoimmune: None GI: GERD 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 : None HEENT: None Psych: Depression Musculoskeletal: None Derm: None - Past Surgical History Past Surgical History: Yes - Present Medications Home Medications: Ambulatory Orders Medication Instructions Recorded Confirmed Cetirizine [ZyrTEC] 10 mg PO DAILY 08/10/15 03/29/22 Montelukast [Singulair] 10 mg PO QPM 08/10/15 03/29/22 Omeprazole [PriLOSEC] 20 mg PO DAILY 08/10/15 03/29/22 Pravastatin [Pravachol] 20 mg PO DAILY 08/10/15 03/29/22 Zolpidem [Ambien] 10 mg PO HS 08/10/15 03/29/22 buPROPion [Wellbutrin Sr] 150 mg PO BID 08/10/15 03/29/22 hydroCHLOROthiazide 25 mg PO DAILY 08/10/15 03/29/22 [Hydrochlorothiazide] Levalbuterol [Xopenex] 1 puffs INH Q4-6H #15 gm 04/07/21 03/29/22 Benzonatate [Tessalon] 200 mg PO TID PRN #20 cap 03/29/22 Gabapentin [Neurontin] 300 mg PO HS 03/29/22 03/29/22 Glipizide [Glipizide ER] 5 mg PO DAILY 03/29/22 03/29/22 Ipratropium/Albuterol [Duoneb] 3 ml INH Q6H PRN #1 ea 03/29/22 Losartan [Cozaar] 100 mg PO DAILY 03/29/22 03/29/22 amLODIPine [Norvasc] 10 mg PO DAILY 03/29/22 03/29/22 predniSONE [Deltasone] 20 mg PO [id number] #21 tab 03/29/22 Ipratropium/Albuterol [Duoneb] 3 ml INH Q6H PRN #30 ea 08/06/22 predniSONE [Deltasone] 60 mg PO DAILY 4 Days #12 tablet 08/06/22 predniSONE [Deltasone] 20 mg PO [id number] #21 tab 08/03/23 - Allergies Allergies/Adverse Reactions: Allergies Allergy/AdvReac Type Severity Reaction Status Date / Time nitrofurantoin AdvReac Nausea Verified 08/06/22 10:15 [From Macrobid] nitrofurantoin AdvReac Nausea Verified 08/06/22 10:15 macrocrystalline * [From Macrobid] Sulfa (Sulfonamide AdvReac Rash Verified 08/06/22 10:15 Antibiotics) - Social History Does the pt smoke?: No Smoking Status: Never smoker Does the pt drink ETOH?: No ETOH Use: Beer, Liquor Does the pt have substance abuse?: No - Immunizations Immunizations are current?: Yes - POLST Patient has POLST: No PD ED PE NORMAL - Vitals Vital signs reviewed: Yes - General General: Alert and oriented X 3, No acute distress, Well developed/nourished - HEENT HEENT: Atraumatic, Moist mucous membranes - Neck Neck: Supple, no meningeal sign, No adenopathy - Cardiac Cardiac: RRR, No murmur - Respiratory Respiratory: Other (. Diminished lung sounds bilaterally, faint expiratory wheezing, no distress.) - Abdomen Abdomen: Normal bowel sounds, Soft, Non tender Results - Vitals Vitals: Vital Signs - 24 hr 08/03/23 08/03/23 08/03/23 13:06 13:58 14:45 Temperature 36.0 C L Heart Rate 91 84 87 Respiratory 22 20 18 Rate Blood Pressure 114/94 H 149/105 H O2 Saturation 99 99 Oxygen O2 Source Room air PD Medical Decision Making - ED course Complexity details: re-evaluated patient, considered differential, d/w patient ED course: 58-year-old female with a history of asthma presented feeling like she may be having an asthma exacerbation. She has had several in the past. She is well- appearing here on physical exam, afebrile nontoxic and in no respiratory distress. Her lungs are mildly diminished with expiratory wheezes therefore we gave her a DuoNeb and she noted substantial improvement in her symptoms. She was also given IM Solu-Medrol. I will discharge her home with a short course of steroids, patient to use her home DuoNebs every 2-4 hours as neededIn addition to her other medications. Return precautions reviewed with the patient in detail and she was discharged home in stable condition. Departure - Departure Disposition: 01 Home, Self Care Clinical Impression: Asthma Qualifiers: Asthma severity: unspecified severity Asthma persistence: persistent Asthma complication type: with acute exacerbation Qualified Code(s): J45.901 - Unspecified asthma with (acute) exacerbation Condition: Good Instructions: Asthma Dc Prescriptions: predniSONE [Deltasone] 20 mg PO [id number] #21 tab Comments: Please take steroids as prescribed and continue to do duonebs and as needed albuterol. Return if worsening. Forms: PCP List Discharge Date/Time: 08/03/23 14:45
[2023-08-03] MEDS: IPRATROPIUM/ALBUTEROL 3 ML NEB INH STA (13:54)
[2023-08-03] MEDS: methylPREDNISolone SUCCINATE 125 MG/2 ML VIAL IM STA (14:11)
[2023-08-03 14:52] VITALS: BP 149/105
== END 2023-08-03 14:45 | disposition home or self-care (01) ==
LOC: ED 12:51
DX: J45.901 Unspecified asthma with (acute) exacerbation (principal); I10 Essential (primary) hypertension
CPT/HCPCS: 94640; 94664; 96372; 99283; 99284

== ENCOUNTER 2024-01-09 08:05 | Outpatient (CLI) | payer OTHER ==
[2024-01-09 12:04] LABS: BASOPHILS # (AUTO) 0.1 10^3/uL (0.0-0.1); BASOPHILS % (AUTO) 0.9 %; EOSINOPHILS # (AUTO) 0.2 10^3/uL (0.0-0.7); EOSINOPHILS % (AUTO) 2.7 %; HCT - HEMATOCRIT 41.2 % (37.0-47.0); HGB - HEMOGLOBIN 12.9 g/dL (12.0-16.0); LYMPHOCYTES # (AUTO) 2.5 10^3/uL (1.5-3.5); LYMPHOCYTES % (AUTO) 35.4 %; MEAN CORPUSCULAR HEMOGLOBIN 29.1 pg (27.0-31.0); MEAN CORPUSCULAR HGB CONC 31.3 g/dL (32.0-36.0); MEAN CORPUSCULAR VOLUME 92.8 fL (81.0-99.0); MEAN PLATELET VOLUME 10.4 fL (7.9-10.8); MONOCYTES # (AUTO) 0.4 10^3/uL (0.0-1.0); MONOCYTES % (AUTO) 5.9 %; NEUTROPHILS # (AUTO) 3.8 10^3/uL (1.5-6.6); NEUTROPHILS % (AUTO) 54.8 %; PLT - PLATELET COUNT 305 10^3/uL (130-450); RED BLOOD COUNT 4.44 10^6/uL (4.20-5.40); RED CELL DISTRIBUTION WIDTH 13.2 % (12.0-15.0); WHITE BLOOD COUNT 6.9 x10^3/uL (4.8-10.8)
[2024-01-09 12:16] LABS: ESTIMATED AVERAGE GLUCOSE 126 mg/dL (70-100)
[2024-01-09 12:19] LABS: ALBUMIN 4.4 g/dL (3.2-5.5); ALBUMIN/GLOBULIN RATIO 1.6 (1.0-2.2); ALKALINE PHOSPHATASE 64 IU/L (42-121); ALT ALANINE AMINOTRANSFERASE 12 IU/L (10-60); AST ASPARTATE AMINOTRANSFERASE 12 IU/L (10-42); BILIRUBIN,TOTAL 0.4 mg/dL (0.2-1.0); BUN - BLOOD UREA NITROGEN 16 mg/dL (6-20); CALCIUM 9.5 mg/dL (8.5-10.3); CARBON DIOXIDE - CO2 27 mmol/L (21-32); CHLORIDE 104 mmol/L (101-111); CHOL/HDL RATIO 4.9 (<4.4); CHOLESTEROL 190 mg/dL; GFR - MDRD 57 (>89); GLUCOSE 140 mg/dL (74-104); HDL CHOLESTEROL 39 mg/dL; LDL CHOLESTEROL,CALCULATED 112 mg/dL; LDL/HDL RATIO 2.9 (<4.4); POTASSIUM 4.6 mmol/L (3.5-4.5); SODIUM 137 mmol/L (135-145); TOTAL PROTEIN 7.2 g/dL (6.4-8.9); TRIGLYCERIDES 193 mg/dL; VLDL CHOLESTEROL 39 mg/dL
[2024-01-09 12:27] LABS: THYROID STIMULATING HORMONE 3.41 uIU/mL (0.34-5.60)
[2024-01-09 12:28] LABS: CREATININE,URINE 157.3 mg/dL; MICROALBUM/CREATININE RATIO,UR 44.5 ug/mg (<30.0)
== END 2024-01-09 08:06 | disposition home or self-care (01) ==
LOC: LAB.N 08:05
PROVIDERS: ATTEND Physician Assistant
DX: E11.9 Type 2 diabetes mellitus without complications (principal); E78.5 Hyperlipidemia, unspecified
CPT/HCPCS: 36415; 80053; 80061; 82043; 82570; 83036; 83721; 84443; 85025